=== PATIENT | female | born 1985 | race Caucasian/White ===

== ENCOUNTER 2017-04-10 22:05 | Emergency (ER) | payer BC, OTHER ==
[2017-04-10 22:13] VITALS: BP 133/83; PULSE 107; RESP 18; TEMP 99; O2SAT 97
[2017-04-10] MEDS ORDERED: DIAZEPAM 5 MG TAB PO ONE (22:39)
[2017-04-10] MEDS ORDERED: KETOROLAC TROMETHAMINE 30 MG/ML SOL IM ONE (22:39)
[2017-04-10] MEDS ORDERED: DIAZEPAM 5 MG TAB ONE (22:42)
[2017-04-10] MEDS ORDERED: KETOROLAC TROMETHAMINE 30 MG/ML SOL ONE (22:42)
[2017-04-10] MEDS ORDERED: PROMETHAZINE HYDROCHLORIDE 25 MG/ML SOL IM ONE (23:27)
[2017-04-10] MEDS ORDERED: PROMETHAZINE HYDROCHLORIDE 25 MG/ML SOL ONE (23:56)
[2017-04-11] MEDS ORDERED: DIAZEPAM 5MG/ML SOL IM ONE (00:41)
[2017-04-11] MEDS ORDERED: DIAZEPAM 5MG/ML SOL ONE (00:45)
== END 2017-04-11 01:43 | disposition home or self-care (01) ==
LOC: ED 22:05
DX: S39.012A Strain of muscle, fascia and tendon of lower back, initial encounter (principal); X50.0XXA Overexertion from strenuous movement or load, initial encounter
CPT/HCPCS: 99284; J1885; J2550; J3360